=== PATIENT | female | born 1955 | race Two or more races ===

== ENCOUNTER 2022-12-17 08:11 | Emergency (ER) | payer OTHER ==
[~2022-12-17] VITALS: Ht 157.5 cm; Wt 59.2 kg
[2022-12-17 08:25] VITALS: BP 184/94; PULSE 60; RESP 18; O2SAT 96
== END 2022-12-17 14:18 | disposition left against medical advice (07) ==
LOC: ER 08:11
DX: R21 Rash and other nonspecific skin eruption (principal); Z45.2 Encounter for adjustment and management of vascular access device; Z53.21 Procedure and treatment not carried out due to patient leaving prior to being seen by health care provider
CPT/HCPCS: 71045

== ENCOUNTER 2023-07-07 12:50 | Inpatient (IN) | payer OTHER, MEDICAID ==
[~2023-07-07] VITALS: Ht 157.5 cm; Wt 78.5 kg
[2023-07-07 14:31] LABS: Basophils # (auto) 0 10 ^3/uL (0-0.2); Eosinophils # (auto) 0 10 ^3/uL (0-0.8); Eosinophils % (auto) 1.3 % (0.0-7.0); Hematocrit 28.5 % (36.0-46.0); Lymphocytes # (auto) 0.4 10 ^3/uL (0.4-5.4); Monocytes # (auto) 0 10 ^3/uL (0-1.3); Red Cell Distribution Width 15.2 % (11.8-14.3)
[2023-07-07 14:34] LABS: Basophils % (auto) 0.3 % (0.0-2.0); Hemoglobin 9.6 g/dL (12.2-16.2); Lymphocytes % (auto) 50.2 % (10.0-50.0); Mean Corpuscular Hemoglobin 29.2 pg (28.0-32.0); Mean Corpuscular Hgb Conc. 33.7 g/dL (32.0-36.0); Mean Corpuscular Volume 86.8 fL (80.0-100.0); Neutrophils % (auto) 45.2 % (37.0-80.0); Nucleated Red Blood Cells % 0.2 %; Red Blood Cells 3.29 10^6/uL (4.0-5.20)
[2023-07-07 14:37] LABS: Alanine Aminotransferase 82 U/L (7-40); Albumin 4.2 g/dL (3.2-4.8); Alkaline Phosphatase 114 U/L (46-116); Anion Gap 9 (5-15); Aspartate Aminotransferase 39 U/L (13-40); Bilirubin, Total 0.7 mg/dL (0.2-1.0); Blood Urea Nitrogen 32 mg/dL (9-23); Calcium 9.7 mg/dL (8.5-10.1); Carbon Dioxide 27 mmol/L (20-30); Chloride 105 mmol/L (98-107); Glucose 110 mg/dL (74-106); Potassium 3.2 mmol/L (3.5-5.1); Sodium 141 mmol/L (136-145); Total Protein 6.3 g/dL (5.7-8.2)
[2023-07-07 14:41] LABS: White Blood Cell 0.7 10^3/uL (4.4-10.8)
[2023-07-07 15:06] LABS: Platelet Estimate Markedly Decreased
[2023-07-07 15:08] LABS: Neutrophils # (auto) 0.3 10 ^3/uL (1.6-8.6)
[2023-07-07] MEDS ORDERED: ACETAMINOPHEN 325 MG TAB PO PRN (15:45)
[2023-07-07] MEDS ORDERED: FILGRASTIM(TBO) 480 MCG/0.8 ML SYRG SC ONE (15:45)
[2023-07-07 15:48] VITALS: O2SAT 100
[2023-07-07] MEDS: POTASSIUM EFFERVESENT TAB 25 MEQ PO ONE (18:10)
[2023-07-07] MEDS: FILGRASTIM(TBO) 480 MCG/0.8 ML SYRG SC ONE (18:11)
[2023-07-07 19:30] VITALS: PULSE 80; RESP 16; O2SAT 95
[2023-07-07 20:53] LABS: Urine Bacteria None Seen /hpf (None Seen)
[2023-07-07 21:40] LABS: Urine Amorphous Crystal FEW /hpf (None Seen); Urine Blood Negative /uL (Negative); Urine Clarity Clear (Clear); Urine Color Light-Yellow (Yellow); Urine Protein, UAD Negative (Negative); Urine Specific Gravity 1.016 (1.001-1.035); Urine Urobilinogen 4 mg/dL (Negative); Urine WBC 5 /hpf (0 - 5); Urine pH 7.5 (5.0-9.0)
[2023-07-07 22:07] LABS: Folate (Folic Acid) 18.91 ng/mL (>5.38)
[2023-07-07 22:15] VITALS: BP 140/65; PULSE 66; RESP 14; TEMP 98.3; O2SAT 95; O2SAT 99
[2023-07-07 22:39] LABS: % Iron Saturation 95.5 % (15-50)
[2023-07-07] MEDS ORDERED: WOUNGEL61 EX (23:08)
[2023-07-07] MEDS ORDERED: NYS5LQ MT (23:08)
[2023-07-07] MEDS ORDERED: ASPI-543 PO (23:08)
[2023-07-07] MEDS ORDERED: CITA10TA8 PO (23:08)
[2023-07-07] MEDS ORDERED: FAMO-12 PO (23:08)
[2023-07-07] MEDS ORDERED: NITR50CA52 GT (23:08)
[2023-07-07] MEDS ORDERED: AML5T GT (23:08)
[2023-07-07] MEDS ORDERED: ALBU2TAB11 PO (23:08)
[2023-07-07] MEDS ORDERED: [UNRECOGNIZED DRUG - CODE] OR (23:08)
[2023-07-07] MEDS ORDERED: NAPR-957 PO (23:08)
[2023-07-07] MEDS ORDERED: ONDA-155 PO (23:08)
[2023-07-07] MEDS ORDERED: CARV12.544 PO (23:08)
[2023-07-07] MEDS ORDERED: DEXA0.5S2 PO (23:08)
[2023-07-07] MEDS ORDERED: OXY5T GT (23:08)
[2023-07-08] VITALS (13 sets, daily range): BP systolic 96–143; BP diastolic 52–75; PULSE 63–103; RESP 16–22; TEMP 97.7–98.7; O2SAT 92–98
[2023-07-08 07:14] LABS: Basophils # (auto) 0 10 ^3/uL (0-0.2); Basophils % (auto) 0.3 % (0.0-2.0); Eosinophils # (auto) 0 10 ^3/uL (0-0.8); Hemoglobin 8.7 g/dL (12.2-16.2); Lymphocytes # (auto) 0.4 10 ^3/uL (0.4-5.4); Monocytes # (auto) 0 10 ^3/uL (0-1.3); Neutrophils # (auto) 0.2 10 ^3/uL (1.6-8.6)
[2023-07-08 07:17] LABS: Eosinophils % (auto) 1.8 % (0.0-7.0); Hematocrit 26.1 % (36.0-46.0); Mean Corpuscular Hgb Conc. 33.2 g/dL (32.0-36.0); Mean Corpuscular Volume 90.2 fL (80.0-100.0); Monocytes % (auto) 0.9 % (0.0-12.0); Neutrophils % (auto) 28.7 % (37.0-80.0); Nucleated Red Blood Cells % 1.6 %; Red Cell Distribution Width 14.7 % (11.8-14.3)
[2023-07-08 07:46] LABS: Lymphocytes % (auto) 68.3 % (10.0-50.0)
[2023-07-08 07:48] LABS: White Blood Cell 0.5 10^3/uL (4.4-10.8)
[2023-07-08 08:24] LABS: Platelet Estimate Decreased
[2023-07-08 08:25] LABS: Tear Drop Cells FEW
[2023-07-08] MEDS ORDERED: FILGRASTIM(TBO) 480 MCG/0.8 ML SYRG SC SCH (10:00)
[2023-07-08] MEDS: CITALOPRAM HYDROBR 20 MG TAB PO SCH (12:48)
[2023-07-08] MEDS: FAMOTIDINE 20 MG TAB PO SCH (12:48)
[2023-07-08] MEDS: FILGRASTIM(TBO) 480 MCG/0.8 ML SYRG SC ONE (18:39)
== END 2023-07-08 23:24 | disposition home health service (06) | DRG 809 ==
LOC: ER 12:50 → TELE 15:55 → TELE-EAST 22:15
PROVIDERS: ADMIT Internal Medicine; ATTEND Internal Medicine
PROC: 30233R1 Transfusion of Nonautologous Platelets into Peripheral Vein, Percutaneous Approach (ICD-10-PCS; principal; 2023-07-08)
DX: D61.810 Antineoplastic chemotherapy induced pancytopenia (principal); C71.9 Malignant neoplasm of brain, unspecified; F32.9 Major depressive disorder, single episode, unspecified; I10 Essential (primary) hypertension; T45.1X5A Adverse effect of antineoplastic and immunosuppressive drugs, initial encounter; Z96.641 Presence of right artificial hip joint; K21.9 Gastro-esophageal reflux disease without esophagitis; R04.0 Epistaxis; Z85.841 Personal history of malignant neoplasm of brain; Z92.21 Personal history of antineoplastic chemotherapy; Z79.899 Other long term (current) drug therapy; Z85.72 Personal history of non-Hodgkin lymphomas; Z80.49 Family history of malignant neoplasm of other genital organs; Y92.89 Other specified places as the place of occurrence of the external cause; Z91.81 History of falling; Z92.3 Personal history of irradiation; Z98.82 Breast implant status
CPT/HCPCS: 36415; 70450; 80053; 81001; 82607; 82746; 83540; 83550; 83605; 83735; 84484; 85025; 86850; 86900; 86901; 99291; G0378; J1447

== ENCOUNTER 2023-08-20 10:04 | Emergency (ER) | payer OTHER, MEDICAID ==
[~2023-08-20] VITALS: Ht 157.5 cm; Wt 72.8 kg
[~2023-08-20 10:04] MED LIST: ALBU2TAB11 PO; AML5T GT; ASPI-543 PO; CARV12.544 PO; CITA10TA8 PO; DEXA0.5S2 PO; FAMO-12 PO; NYS5LQ MT; ONDA-155 PO; OXY5T GT
[2023-08-20 11:09] LABS: Basophils # (auto) 0 10 ^3/uL (0-0.2); Eosinophils # (auto) 0.1 10 ^3/uL (0-0.8); Hematocrit 27.3 % (36.0-46.0); Lymphocytes # (auto) 0.5 10 ^3/uL (0.4-5.4); Mean Corpuscular Volume 97.7 fL (80.0-100.0); Monocytes # (auto) 0.2 10 ^3/uL (0-1.3); Neutrophils # (auto) 1.2 10 ^3/uL (1.6-8.6)
[2023-08-20 11:11] LABS: Basophils % (auto) 0.2 % (0.0-2.0); Eosinophils % (auto) 5.1 % (0.0-7.0); Hemoglobin 9.2 g/dL (12.2-16.2); Lymphocytes % (auto) 26.1 % (10.0-50.0); Mean Corpuscular Hemoglobin 33.1 pg (28.0-32.0); Mean Corpuscular Hgb Conc. 33.9 g/dL (32.0-36.0); Monocytes % (auto) 8.1 % (0.0-12.0); Neutrophils % (auto) 60.5 % (37.0-80.0); Nucleated Red Blood Cells % 0.4 %; Red Blood Cells 2.79 10^6/uL (4.0-5.20); Red Cell Distribution Width 19.5 % (11.8-14.3)
[2023-08-20 11:15] LABS: Urine Bacteria None Seen /hpf (None Seen); Urine Blood Negative /uL (Negative); Urine Clarity Turbid (Clear); Urine Color Yellow (Yellow); Urine Hyaline Cast FEW /lpf (0 - 2); Urine Mucus FEW (None Seen); Urine Protein, UAD 1+ (Negative); Urine Specific Gravity 1.023 (1.001-1.035); Urine Urobilinogen 6 mg/dL (Negative); Urine WBC 76 /hpf (0 - 5)
[2023-08-20 11:27] LABS: Alanine Aminotransferase 120 U/L (7-40); Albumin 4.2 g/dL (3.2-4.8); Alkaline Phosphatase 142 U/L (46-116); Anion Gap 9 (5-15); Aspartate Aminotransferase 74 U/L (13-40); BUN/Creatinine Ratio 18.4 (10.0-20.0); Blood Urea Nitrogen 14 mg/dL (9-23); Calcium 9.6 mg/dL (8.5-10.1); Carbon Dioxide 27 mmol/L (20-30); Chloride 107 mmol/L (98-107); Glucose 128 mg/dL (74-106); Magnesium 1.8 mg/dL (1.6-2.6); Potassium 2.9 mmol/L (3.5-5.1); Sodium 143 mmol/L (136-145)
[2023-08-20 11:41] LABS: Lactic Acid w/Reflex 2.5 mmol/L (0.4-2.0)
[2023-08-20] MEDS: SODIUM CHLORIDE 0.9% 1,000 ML IV ONE (13:29)
[2023-08-20] MEDS: POTASSIUM CHL 20 Meq TABLET PO ONE (13:31)
[2023-08-20 16:40] LABS: Basophils # (auto) 0 10 ^3/uL (0-0.2); Basophils % (auto) 0.3 % (0.0-2.0); Eosinophils # (auto) 0.1 10 ^3/uL (0-0.8); Hemoglobin 9.1 g/dL (12.2-16.2); Lymphocytes # (auto) 0.5 10 ^3/uL (0.4-5.4); Monocytes # (auto) 0.2 10 ^3/uL (0-1.3); Neutrophils # (auto) 1.2 10 ^3/uL (1.6-8.6)
[2023-08-20 16:42] LABS: Eosinophils % (auto) 4.5 % (0.0-7.0); Hematocrit 27.4 % (36.0-46.0); Lymphocytes % (auto) 25.6 % (10.0-50.0); Mean Corpuscular Hemoglobin 32.8 pg (28.0-32.0); Mean Corpuscular Hgb Conc. 33.1 g/dL (32.0-36.0); Mean Corpuscular Volume 99.1 fL (80.0-100.0); Monocytes % (auto) 7.7 % (0.0-12.0); Neutrophils % (auto) 61.9 % (37.0-80.0); Nucleated Red Blood Cells % 0.2 %; Red Blood Cells 2.76 10^6/uL (4.0-5.20); Red Cell Distribution Width 19.3 % (11.8-14.3)
[2023-08-20 17:04] LABS: Alanine Aminotransferase 108 U/L (7-40); Albumin 4.2 g/dL (3.2-4.8); Alkaline Phosphatase 132 U/L (46-116); Anion Gap 7 (5-15); Aspartate Aminotransferase 62 U/L (13-40); BUN/Creatinine Ratio 13.4 (10.0-20.0); Bilirubin, Total 0.9 mg/dL (0.2-1.0); Blood Urea Nitrogen 9 mg/dL (9-23); Calcium 9.5 mg/dL (8.5-10.1); Carbon Dioxide 25 mmol/L (20-30); Chloride 110 mmol/L (98-107); Glucose 116 mg/dL (74-106); Potassium 3.6 mmol/L (3.5-5.1); Sodium 142 mmol/L (136-145); Total Protein 6.4 g/dL (5.7-8.2)
[2023-08-20] MEDS ORDERED: CEPH500C PO (17:31)
[2023-08-20 17:54] VITALS: BP 118/79; PULSE 98; RESP 18; TEMP 98.4; O2SAT 100
[2023-08-20 20:18] LABS: Anisocytosis Slight; Platelet Estimate Decreased
== END 2023-08-20 17:55 | disposition home or self-care (01) ==
LOC: ER 10:04
DX: D64.9 Anemia, unspecified (principal); D61.818 Other pancytopenia; E87.6 Hypokalemia; D69.6 Thrombocytopenia, unspecified; N39.0 Urinary tract infection, site not specified; R79.89 Other specified abnormal findings of blood chemistry; I10 Essential (primary) hypertension; Z85.9 Personal history of malignant neoplasm, unspecified; Z98.890 Other specified postprocedural states; Z79.899 Other long term (current) drug therapy
CPT/HCPCS: 36415; 71045; 80053; 81001; 83605; 83735; 83880; 84484; 85025; 86850; 86900; 86901; 93005; 96360; 96361; 99285; J7030

== ENCOUNTER 2023-09-12 09:20 | Emergency (ER) | payer OTHER, MEDICAID ==
[~2023-09-12] VITALS: Ht 157.5 cm; Wt 70.4 kg
[~2023-09-12 09:20] MED LIST changes: +CEPH500C PO
[2023-09-12 09:50] VITALS: PULSE 77; RESP 16; O2SAT 92
[2023-09-12] MEDS: HYDROcodone-ACET 5/325MG TAB PO ONE ×2 (10:05→14:00)
[2023-09-12] MEDS: HYDROmorphone HCL 2 MG/ML VL/or syr IV ONE (15:22)
[2023-09-12 21:00] VITALS: PULSE 77; RESP 16; O2SAT 98
[2023-09-13] MEDS ORDERED: ACETAMINOPHEN 325 MG TAB PO PRN (23:45)
[2023-09-14] MEDS: HYDROcodone-ACET 5/325MG TAB PO PRN (00:31)
[2023-09-14 07:42] VITALS: PULSE 62; RESP 16; O2SAT 100
[2023-09-14 16:58] VITALS: BP 130/59; PULSE 72; RESP 16; TEMP 97.5; O2SAT 97
== END 2023-09-14 19:43 ==
LOC: EDUNIT# 09:20 → EDBD 09:20 → ER 09:20
DX: S32.591A Other specified fracture of right pubis, initial encounter for closed fracture (principal); W18.09XA Striking against other object with subsequent fall, initial encounter; Y93.01 Activity, walking, marching and hiking; Y92.89 Other specified places as the place of occurrence of the external cause; Y99.8 Other external cause status
CPT/HCPCS: 72100; 73502; 73552; 73700; 96374; 97163; 99285; J1170

== ENCOUNTER 2023-10-03 07:25 | Emergency (ER) | payer OTHER, MEDICAID ==
[~2023-10-03] VITALS: Ht 157.5 cm; Wt 69.4 kg
[2023-10-03 07:59] VITALS: BP 129/87; PULSE 107; RESP 16; TEMP 97; O2SAT 95
[2023-10-03] MEDS: LIDOCAINE 1% HCL (LOCAL ANESTH.) INJ 20ML MDV IJ ONE (08:15)
[2023-10-03] MEDS: cefTRIAXone SOD 1,000 MG VL IM ONE (08:15)
[2023-10-03] MEDS ORDERED: AZIT-185 PO (08:21)
[2023-10-03] MEDS ORDERED: LIDO2SOL26 MT (08:21)
== END 2023-10-03 08:31 | disposition home or self-care (01) ==
LOC: ER 07:25
DX: J03.90 Acute tonsillitis, unspecified (principal); J04.0 Acute laryngitis; Z85.9 Personal history of malignant neoplasm, unspecified; Z79.899 Other long term (current) drug therapy
CPT/HCPCS: 96372; 99283; J0696; J2001

== ENCOUNTER 2025-02-01 15:08 | Emergency (ER) | payer MEDICAID, OTHER ==
[~2025-02-01] VITALS: Ht 157.5 cm; Wt 73.0 kg
[~2025-02-01 15:08] MED LIST changes: +AZIT-185 PO; +LIDO2SOL26 MT
[2025-02-01 16:01] VITALS: BP 144/92; PULSE 101; RESP 18; TEMP 98.3; O2SAT 98
--- NOTE | 2025-02-01 16:10 | ED.PDOC ---
History of Present Illness HPI Comments A 69 YEAR OLD FEMALE PRESENTS TO THE ED WITH COMPLAINT OF RASH. PT STATES SHE HAS BEEN HAVING RASH FOR THE PAST 1X WEEK. PT WAS SEEN AT [facility] AND DX WITH SHINGLES TO THE R ARM AND GIVEN ANTIVIRAL MEDICATIONS AND PAIN MEDICATIONS. PT STATES SHE WAS SEEN BY PCP EARLIER THIS AFTERNOON AND WAS SENT TO THE ED TO RULE OUT DVT IN R ARM DUE TO MILD SWELLING AND PAIN TO R ARM. PT IN THE ED HAS NOTED SHINGLES RASH TO THE R ARM. PATIENT DENIES FEVER, CHILLS, SHORTNESS OF BREATH, CHEST PAIN, ABDOMINAL PAIN, NAUSEA, VOMITING, HEADACHE, OR OTHER COMPLAINTS. NO OTHER SYMPTOMS OR MODIFYING FACTORS AT THIS TIME. PATIENT IS ALERT, ORIENTED X 4, AND HAS STEADY GAIT. Chief Complaint: Rash Time Seen by MD: 16:06 Primary Care Provider: NONE Reviewed Notes: Nurses Notes, Medications, Allergies Allergies: Uncoded Allergies: UNKNOWN ANTIBIOTIC (Allergy, Severe, 02/01/25) Home Meds Active Scripts Lidocaine HCl (Mouth-Throat) (Lidocaine HCl Viscous) 2 % Karina, 5 ML MT TID, #100 ML Prov:GLORIA LAUGHLIN 10/03/23 Azithromycin (ZITHROMAX TABLET) 250 Mg Tb, 250 MG PO DAILY, #6 TAB Prov:GLORIA LAUGHLIN 10/03/23 Cephalexin Monohydrate (Cephalexin) 500 Mg Cap, 500 MG PO Q8HR for 7 Days, #21 CAP Prov:CRISTHIAN MAHER DO 08/20/23 Reported Medications Albuterol Sulfate (Albuterol Sulfate) 2 Mg Tab, 1 MG PO Q6HP PRN for FOR COUGH, MG 07/07/23 Carvedilol (Carvedilol) 12.5 Mg Tab, 12.5 MG PO Q12HR for 30 Days, MG 07/07/23 Nystatin (Mouth-Throat) (Mycostatin (Mouth-Throat)) 500,000 Units/5 Ml Ss, 5 ML MT QID for 10 Days, #200 ML 24 Oxycodone Hcl (OXYCODONE HCL) 5 Mg Tb, 5 MG GT, TAB 07/07/23 Aspirin (Aspir-Low) 81 Mg Tab, 81 MG PO DAILY for 30 Days, MG 24 Famotidine (Famotidine) 20 Mg Tab, 20 MG PO BID for 30 Days, MG 5/7/24 Dexamethasone (Dexamethasone) 0.5 Mg/5 Ml Karina, 0.5 MG PO DAILY, MG 07/07/23 Ondansetron HCl (Ondansetron) 4 Mg Tab, 4 MG PO, TAB 07/07/23 Citalopram Hydrobromide (Celexa) 10 Mg Tab, 10 MG PO, TAB 07/07/23 Amlodipine Besylate (NORVASC TABLET) 5 Mg Tb, 10 MG GT, TAB 07/07/23 Information Source: Patient Mode of Arrival: Ambulatory Severity: Moderate Timing: Days Duration: Since onset Prehospital treatment: None Medication Refill: For: Other (RIGHT EXTREMITY HERPES ZOSTER AND REQUESTS DVT TEST. 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 Hx Family History Family History: Reviewed,noncontributory to illness Social History Smoker: Non-Smoker Alcohol: Denies ETOH Use Drugs: Denies Drug Use Lives In: Home Constitutional: denies: chills, diaphoresis, fatigue, fever, malaise, sweats, weakness, others EENTM: denies: blurred vision, double vision, ear bleeding, ear discharge, ear drainage, ear pain, ear ringing, eye pain, eye redness, hearing loss, mouth pain, mouth swelling, nasal discharge, nose bleeding, nose congestion, nose pain, photophobia, tearing, throat pain, throat swelling, voice changes, others Respiratory: denies: cough, hemoptysis, orthopnea, SOB at rest, shortness of breath, SOB with excertion, stridor, wheezing, others Cardiovascular: denies: chest pain, dizzy spells, diaphoresis, Dyspnea on exertion, edema, irregular heart beat, left arm pain, lightheadedness, palpitations, PND, syncope, others Gastrointestinal: denies: abdomen distended, abdominal pain, blood streaked bowels, constipated, diarrhea, dysphagia, difficulty swallowing, hematemesis, melena, nausea, poor appetite, poor fluid intake, rectal bleeding, rectal pain, vomiting, others Genitourinary: denies: abnormal vagina bleeding, burning, dyspareunia, dysuria, flank pain, frequency, hematuria, incontinence, pain, , vagina discharge, urgency, others Neurological: denies: dizziness, fainting, headache, left sided numbness, left sided weakness, numbness, paresthesia, pre-existing deficit, right sided numbness, right sided weakness, seizure, speech problems, tingling, tremors, weakness, others Musculoskeletal: denies: back pain, gout, joint pain, joint swelling, muscle pain, muscle stiffness, neck pain, others Integumetry: reports: lesions, rash (SHINGLES TO R ARM); denies: bruises, change in color, change in hair/nails, dryness, laceration, lumps, wounds, o thers Allergic/Immunocompromised: denies: Difficulty Healing, Frequent Infections, Hives, Itching, others Hematologic/Lymphatic: denies: anemia, blood clots, easy bleeding, easy bruising, swollen glands, others Endocrine: denies: excessive hunger, excessive sweating, excessive thirst, excessive urination, flushing, intolerance to cold, intolerance to heat, unexplained weight gain, unexplained weight loss, others Psychiatric: denies: anxiety, bipolar disorder, depression, hopeless, panic disorder, schizophrenia, sleepless, suicidal, others All Other Systems: Reviewed and Negative Physical Exam General Appearance: No Apparent Distress, Normal HEENT: Normal ENT Inspection, PERRL/EOMI, Pharynx Normal, TMs Normal Neck: Full Range of Motion, Non-Tender, Normal, Normal Inspection Respiratory: Chest Non-Tender, Lungs Clear, No Accessory Muscle Use, No Respiratory Distress, Normal Breath Sounds Cardiovascular: No Edema, No JVD, No Murmur, No Gallop, Normal Peripheral Pulses, Regular Rate/Rhythm Breast Exam: Deferred Gastrointestinal: No Organomegaly, Non Tender, No Pulsatile Mass, Normal Bowel Sounds, Soft Genitalia: Deferred Pelvic: Deferred Rectal: Deferred Extremities: No calf tenderness, Normal capillary refill, Normal range of motion, No pedal edema, Tender (WITH VESICLE SKIN RASH ON RIGHT LATERAL FOREARM, MILD FOREARM AND RIGHT DORSAL HAND, NO DVT SIGNS. ) Musculoskeletal : Apperance: Normal Neurologic: Alert, inward toll operator II-XII nml as Tested, No Motor Deficits, Normal Affect, Normal Mood, No Sensory Deficits Cerebellar Function: Normal Reflexes: Normal Skin: Dry, Rash (A GROUP OF VESICLE SKIN RASH ON RIGHT DORSAL HAND TO RIGHT LATERAL FOREARM AND MILD RIGHT ARM, +HERPES ZOSTER. ), Warm Peripheral Pulses: 2+ carotid (R), 2+ carotid (L), 2+ Radial (R), 2+ Radial (L) Lymphatic: No Adenopathy Was a procedure done? Was a procedure done?: No Differential Dx Considerations may include: DVT, POST- HERPETIC NEURALGIA, SHINGLES, X-Ray, Labs, Meds, VS Vital Signs Date Time Temp Pulse Resp B/P (MAP) Pulse Ox O2 Delivery O2 Flow Rate FiO2 02/01/25 16:01 98.3 101 18 144/92 (109) 98 98.3 02/01/25 16:01 101 02/01/25 15:32 98.3 101 18 144/92 98 98.3 Current Medications Medications (Trade) Dose Ordered Sig/Rizwana Route Start Time Stop Time Status Last Admin Acetaminophen/ Hydrocodone Bitart (Wilson 5/325MG Tab) 1 tab ONCE ONCE PO 02/01/25 16:00 02/01/25 16:01 DC 02/01/25 16:11 [place] [id number] Ph: [phone] DIAGNOSTIC IMAGING Diagnostic Imaging Report : [id number] Signed PATIENT: TRAMAINE HARTLEYT: [id number] UNIT: [id number] : 1955 LOC: ER ROOM / BED: / AGE / SEX: 69 / F ADM STATUS: REG ER SERVICE [id number] ORDERING PHYSICIAN: GLORIA LAUGHLIN PROCEDURE(s): RUDVT - Rt Upper DVT REASON: HERPES ZOSTER OF RIGHT UUPPER ARM, PCP SENT TO R/O DVT ORDER NUMBER(s): [id number], ACCESSION NUMBER(s): [id number] History: HERPES ZOSTER OF RIGHT UUPPER ARM, PCP SENT TO R/O DVT Comparison: None Technique: Duplex sonography of the right upper extremity with color and spectral Doppler, with and without compression. Findings: Right upper extremity venous Doppler demonstrates patent and normal flow signals at all levels. Venous imaging demonstrates patent and compressible vessels. Negative for intraluminal thrombus. IMPRESSION: 1. No evidence of right upper extremity deep venous thrombosis. ATED BY: VINAY DOOLEY MD DICTATED DATE/TIME: 02/01/25 1633 SIGNED BY: VINAY DOOLEY MD SIGNED DATE/TIME: 02/01/25 4142 CC: X-Ray, Labs, Meds, VS Comment COURSE: EXTERNAL MEDICAL RECORDS REVIEWED: [NONE] INDEPENDENT HISTORIANS: [NONE] SOCIAL DETERMINANTS OF HEALTH: [NONE] LABS ORDERED: NONE REVIEWED AND INTERPRETED RESULTS: NONE IMAGING ORDERED: R UPPER DVT TREATMENTS ORDERED: NORCO 5/325 1 TAB PO PROCEDURES PERFORMED: NONE CRITICAL CARE TIME: NONE I HAVE DISCUSSED THE PATIENT WITH THE ATTENDING PHYSICIAN AND HE AGREES WITH THE PATIENT'S PLAN OF CARE AND DISPOSITION. BASED ON HISTORY OF PRESENT ILLNESS, AND PHYSICAL EXAM, PATIENT WILL BE DISCHARGED HOME. PT HAS ACYCLOVIR AND ULTRAM AT HOME. SHARED DECISION MAKING: DISCUSSED WITH PATIENT THAT THEIR WORKUP WAS NORMAL. PATIENT INSTRUCTED TO FOLLOW UP WITH PRIMARY CARE PROVIDER IN 1-2 DAYS FOR RE- EVALUATION OF SYMPTOMS. PATIENT VERBALIZES UNDERSTANDING TO RETURN TO ED FOR NEW OR WORSENING SYMPTOMS OR IF FOLLOW UP WITH PCP CANNOT BE OBTAINED. PATIENT FEELS COMFORTABLE GOING HOME AT THIS TIME. ALL QUESTIONS ADDRESSED AT TIME OF DISCHARGE. Time of 1ST Reevaluation: 16:54 Reevaluation 1ST: Improved Patient Education/Counseling: Diagnosis, Treatment, Need For Follow Up Family Education/Counseling: Diagnosis, Treatment, Need For Follow Up Medical Screening: No EMC Exist At This Time SEPSIS Sepsis Screen Date sepsis recognized/suspect: Feb 01, 2025 Time Sepsis recognized/suspect: 1536 Recent Procedure: No On Antibiotic Therapy: No Respiratory Rate >20: No Heart Rate >90: Yes Temp<36 C (96.8 F) or >38.3 C: No SBP <90 or MAP <65 mmHG: No New Acute Mental Status Change: No Is the patient on CPAP, BIPAP,: No Physician Orders Rt Upper Dvt (02/01/25 15:49) Vital Signs Date Time Temp Pulse Resp B/P (MAP) Pulse Ox O2 Delivery O2 Flow Rate FiO2 02/01/25 16:01 98.3 101 18 144/92 (109) 98 98.3 02/01/25 16:01 101 02/01/25 15:32 98.3 101 18 144/92 98 98.3 Medications Medications Dose Ordered Sig/Rizwana Route Start Time Stop Time Status Last Admin Dose Admin Acetaminophen/ Hydrocodone Bitart 1 tab ONCE ONCE PO 02/01/25 16:00 02/01/25 16:01 DC 02/01/25 16:11 Departure 1 Departure Time of Disposition: 16:54 Impression: Primary Impression: Herpes zoster Qualified Codes: B02.9 - Zoster without complications Disposition: 01 HOME / SELF CARE / HOMELESS Condition: Stable Additional Instructions: F/U PCP IN 2 DAYS RECHECK. IF CONDITION BECOME WORSE, RETURN TO ED [facility]. Discharged With: Self, Spouse Critical Care Note Critical Care Time?: No Stability Stability form required: No Heart Score Heart Score: Heart Score Response (Comments) Value History N/A 0 EKG N/A 0 Age N/A 0 Risk Factors N/A 0 Troponin N/A 0 Total 0 I personally scribed for GLORIA LAUGHLIN ([email or web address]) on 02/01/25 at 16:10. Electronically submitted by Scout Fisher ([email or web address]). I personally scribed for GLORIA LAUGHLIN ([email or web address]) on 02/01/25 at 16:38. Electronically submitted by Scout Fisher ([email or web address]). GLORIA LAUGHLIN Feb 01, 2025 16:10
[2025-02-01] MEDS: HYDROcodone-ACET 5/325MG TAB PO ONE (16:11)
--- NOTE | 2025-02-01 16:36 | DVH ---
History: HERPES ZOSTER OF RIGHT UUPPER ARM, PCP SENT TO R/O DVT Comparison: None Technique: Duplex sonography of the right upper extremity with color and spectral Doppler, with and without compression. Findings: Right upper extremity venous Doppler demonstrates patent and normal flow signals at all levels. Venous imaging demonstrates patent and compressible vessels. Negative for intraluminal thrombus. IMPRESSION: 1. No evidence of right upper extremity deep venous thrombosis.
== END 2025-02-01 16:54 | disposition home or self-care (01) ==
LOC: ER 15:08
DX: B02.9 Zoster without complications (principal); Z79.82 Long term (current) use of aspirin; Z88.1 Allergy status to other antibiotic agents
CPT/HCPCS: 93971